=== PATIENT | male | born 1990 | race Caucasian/White ===

== ENCOUNTER 2021-06-10 10:45 | Emergency (ER) | payer MEDICAID, SELFPAY ==
[2021-06-10 11:02] VITALS: BP 150/87; PULSE 99; RESP 18; TEMP 36.9; O2SAT 99; BMI 23.6
--- NOTE | 2021-06-10 11:36 | ED.EYEPROB ---
HPI - Eye Problem General Chief complaint: Eye Problems Stated complaint: eye problems Time Seen by Provider: 06/10/21 11:36 Source: patient Mode of arrival: ambulatory Limitations: no limitations History of Present Illness HPI Narrative: 31 y/o male presenting with right upper eyelid pain, redness and swelling for the last 4 days. He denies injury or vision changes. He does not wear contacts or glasses. No FB sensation. He reports crusting when he wakes up each morning but no discharge throughout the day. No redness of the eye itself. MD chief complaint: eye pain and eye redness Onset (ago): day(s) (4) Onset description: gradual Duration: constant Location: right eye Eye Symptoms: redness, pain and itching Place: home Mechanism: none Severity: moderate If Pain, Quality: aching Associated symptoms: none Related Data Patient tetanus UTD: Yes Previous Rx's Medication Instructions Recorded erythromycin 5 mg/gram (0.5 %) eye 0.5 inch OPHTHALMIC (EYE) TID #3.5 06/10/21 ointment g Allergies Allergy/AdvReac Type Severity Reaction Status Date / Time No Known Allergies Allergy Verified 06/10/21 11:01 Review of Systems Constitutional: Constitutional: Denies chills, Denies fever(s) and Denies headache(s) Eyes: Eyes: Denies blurry vision, Denies change in vision, Reports eye discharge, Denies irritation, Denies loss of vision, Denies other visual disturbances and Denies photophobia ENT: Denies headache(s), Denies nasal congestion and Denies sore throat Cardiovascular: Cardiovascular: Denies chest pain and Denies dyspnea Respiratory: Respiratory: Denies dyspnea Neurologic: Denies headache(s) and Denies loss of vision [facility] Past Medical History Source: unable to obtain Social History Social History Advance Directives: No Advance Directives Information Provided: Yes Physical Exam Vital Signs: Vital Signs: Last Vital Signs Temp 98.5 F 06/10/21 11:02 Pulse 99 06/10/21 11:02 Resp 18 06/10/21 11:02 BP 150/87 H 06/10/21 11:02 Pulse Ox 99 06/10/21 11:02 Body Mass Index 23.6 HENMT: Head: Yes normal to inspection, Yes normocephalic and Yes atraumatic Ears: hearing grossly normal bilaterally General nose exam: Normal external nose present Face and sinus: Yes normal facial exam Mouth: Normal oral and palatal mucosa present Teeth and gingiva: dentition normal Throat: Yes posterior oropharynx normal Eyes: Visual Shay: normal visual shay by confrontation Alignment and Position: alignment normal and position normal Periorbital: periorbital findings normal Eyelids: Yes eyelid abnormality (right upper eyelid with erythema and swelling, everted with visible pustule) Conjunctivae: conjunctivae normal Sclerae: sclerae normal Corneas: corneas normal Pupils: Equal, round and reactive pupils present EOM: EOMs intact bilaterally Direct Ophthalmoscopy: No photophobia Neck: Neck: Yes normal visual inspection Chest: Chest palpation & inspection: normal inspection of the chest Resp: Effort & Inspection: normal respiratory effort and able to speak in complete sentences Skin: General skin exam: no rashes or lesions noted Neuro: Cranial nerves: Yes Equal, round and reactive pupils present Course Course Course Narrative: 31 y/o male presenting with right upper eyelid redness, pain and swelling x4 days. Clinical presentation and exam are consistent with internal hordeolum. No findings to suggest preseptal or periorbital cellulitis. Counseled on management and warning signs to prompt urgent re-evaluation. Stable for d/c home with topical abx and supportive care w/ warm compresses. Discharge Plan Discharge Clinical Impression: Hordeolum Qualifiers: Hordeolum type: internum Laterality: right Eyelid: upper Qualified Code(s): H00.021 - Hordeolum internum right upper eyelid Patient Disposition: Home, Self-Care Instructions: Karoline (ED) Additional Instructions: Use warm compresses to your eye several times per day. Use the prescribed antibiotic ointment as directed. If you notice the redness is spreading or worsening or if you have any other concerning symptoms come back to the ER for further evaluation. Prescriptions: New erythromycin 5 mg/gram (0.5 %) ointment 0.5 inch ophthalmic (eye) TID Qty: 3.5 RF: 0 Referrals: Lalo Jauregui [Physician] - 3 days Interventions: ED Discharge Assessment Last Done: 06/10/21 11:42 Discharge Date/Time: 06/10/21 11:43
== END 2021-06-10 11:43 | disposition home or self-care (01) ==
PROVIDERS: Emergency Provider Emergency Medicine
DX: H00.021 Hordeolum internum right upper eyelid (principal); Z79.899 Other long term (current) drug therapy
CPT/HCPCS: 99283